=== PATIENT | male | born 1960 | race Hispanic/Latino ===

== ENCOUNTER 2018-07-17 10:44 | Emergency (ER) | payer BC ==
[2018-07-17] MEDS ORDERED: Lidocaine 2% 10 ML INJ ONE (11:51)
[2018-07-17] MEDS ORDERED: Bupivacaine 0.5% 10 ML VIAL ONE (11:51)
--- NOTE | 2018-07-17 12:16 | CT ---
CT FACIAL BONES WITHOUT IV CONTRAST: HISTORY: Facial injury following being kicked in face by horse. FINDINGS: There are fractures involving the superficial anterior maxilla with the right and left central maxill yuliana incisors being missing. On the right side, the maxillary fracture extends to involve the right l ateral incisor, which is partially dislocated. There is evidence for mostly right-sided frontal sinu s mucosal disease, as well as some mucosal disease in the ethmoid bullae, right greater than left. N o evidence for an overt air-fluid level. Minimal bilateral maxillary sinus mucosal disease. No evid ence for nasal bone fracture. The zygomatic arches appear intact. The mandible appears intact. The visualized cervical spine appears intact. IMPRESSION: 1. Somewhat comminuted fractures involving the anterior maxilla with missing left and right central incisors and dislocated, displaced right lateral incisor. 2. Sinus mucosal disease. 3. No evidence for other acute facial bone fracture. POS: [facility]
[2018-07-17] MEDS ORDERED: Cefepime 2 GM in Sodium Chloride 0.9% 100 ML IVPB SCH (13:45)
== END 2018-07-17 14:56 | disposition home or self-care (01) ==
LOC: ERS 10:44
DX: S02.401A Maxillary fracture, unspecified side, initial encounter for closed fracture (principal); S01.511A Laceration without foreign body of lip, initial encounter; S00.83XA Contusion of other part of head, initial encounter; S03.2XXA Dislocation of tooth, initial encounter; E78.5 Hyperlipidemia, unspecified; I10 Essential (primary) hypertension; Z79.899 Other long term (current) drug therapy; W55.12XA Struck by horse, initial encounter
CPT/HCPCS: 12051; 70486; 96365; J0692; J2001; J3490